=== PATIENT | female | born 1965 | race Caucasian/White ===

== ENCOUNTER → 2018-09-08 | Outpatient (CLI) | payer BC | END | disposition home or self-care (01) | LOC: LABPAT 09:55 | PROVIDERS: ATTEND Orthopaedic Surgery | DX: Z01.812 Encounter for preprocedural laboratory examination (principal) | CPT/HCPCS: 87070 ==

== ENCOUNTER 2018-10-23 06:04 | Inpatient (IN) | payer BC ==
[2018-10-13 16:09] VITALS: BMI 27.3
--- NOTE | 2018-10-22 12:12 | HP ---
HISTORY AND PHYSICAL REASON FOR ADMISSION: Surgery scheduled for 10/23/2018 Alie Galicia is a 53-year-old patient seen with symptomatic left knee osteoarthritis. After having treatment options discussed with her, she elected to proceed with left total knee arthroplasty. Consent was obtained. PAST MEDICAL HISTORY: Asthma. PAST SURGICAL HISTORY: Left knee arthroscopy. MEDICATIONS: Zyrtec. ALLERGIES: ADVIL. SOCIAL HISTORY: She denies current tobacco use. PHYSICAL EXAMINATION: Evaluation of the left knee: Range of motion is -3 to 120 degrees. She is tender along the lateral joint line. There is a positive lateral Armand's. Her ligaments are stable. Hip rotation is without pain. Her distal neurovascular exam is intact. RADIOGRAPHS: Radiographs of the left knee reveal severe lateral and moderate patellofemoral compartment osteoarthritis. IMPRESSION: 1. Left knee osteoarthritis. 2. Asthma. PLAN: Left total knee arthroplasty. MMODL / IJN: [id number] /
[~2018-10-23 06:04] MED LIST: ACETAMINOPHEN TAB 500 MG TAB PO ONE; DEXAMETHASONE SOD PHOSPHATE 10 MG/ML 1 ML VIAL IV ONE; LIDOCAINE 1% 20 ML VIAL (10MG/ML) FOR IV START INTRADERMA PRN; MELOXICAM 7.5 MG TAB PO ONE; MIDAZOLAM 2 MG/2 ML VIAL IV PRN; TRANEXAMIC ACID 1,000 MG in SODIUM CHLORIDE 0.9% 100 ML IVPB ONE; fentaNYL (PF) 50 MCG/ML 2 ML AMP IV PRN
[2018-10-23] MEDS: LACTATED RINGERS 1,000 ML IV SCH ×7 (06:55→23:09)
[2018-10-23] MEDS ORDERED: MIDAZOLAM (PF) 2 MG/2 ML VIAL IVP ONE (06:56)
[2018-10-23] MEDS ORDERED: DEXAMETHASONE SOD PHOSPHATE 10 MG/ML 1 ML VIAL IV ONE (07:07)
[2018-10-23] MEDS ORDERED: ONDANSETRON 4 MG/2 ML VIAL IVP ONE (07:07)
[2018-10-23] MEDS ORDERED: SCOPOLAMINE 1.5MG/72HR PATCH TRANSDERM ONE (07:18)
[2018-10-23] MEDS ORDERED: GLYCOPYRROLATE 0.2 MG/ML 2 ML VIAL ONE (07:24)
[2018-10-23] MEDS ORDERED: SODIUM CHLORIDE 0.9% 100 ML BAG ONE (07:24)
[2018-10-23] MEDS ORDERED: ROCURONIUM BROMIDE 10 MG/ML 10 ML VIAL IV ONE (07:24)
[2018-10-23] MEDS ORDERED: NEOSTIGMINE 1 MG/ML 10 ML VIAL ONE (07:24)
[2018-10-23] MEDS ORDERED: LIDOCAINE 1% INJ 10MG/ML (20 ML MDV) ONE (07:24)
[2018-10-23] MEDS ORDERED: TRANEXAMIC ACID 1,000 MG/10 ML VIAL ONE (07:24)
[2018-10-23] MEDS ORDERED: fentaNYL (PF) 50 MCG/ML 2 ML AMP ONE (07:24)
[2018-10-23] MEDS ORDERED: PROPOFOL 10 MG/ML 20 ML VIAL IV ONE (07:24)
[2018-10-23] MEDS ORDERED: SUCCINYLCHOLINE CHLORIDE 100 MG/5 ML SYR IV ONE (07:24)
[2018-10-23] MEDS ORDERED: ROPIVACAINE 246.25 MG, EPINEPHrine 0.5 MG, KETOROLAC 30 MG, cloNIDine HCL/PF 80 MCG, WA... MISCELLANE ONE ×5 (07:37)
[2018-10-23] MEDS ORDERED: ceFAZolin 3,000 MG in SODIUM CHLORIDE 0.9% IRRIGATIO 3,000 ML IRRIGATION ONE (08:01)
[2018-10-23] MEDS ORDERED: ROPIVACAINE 0.2%-NS ON-Q PUMP 1,090 MG, EMPTY PAIN BALL 1 EACH MISCELLANE PRN (09:27)
[2018-10-23] MEDS ORDERED: HYDROmorphone 0.5 MG/0.5 ML SYRINGE IVP PRN ×2 (09:28)
[2018-10-23] MEDS ORDERED: NALOXONE 0.4 MG/ML 1 ML VIAL IV PRN (09:28)
[2018-10-23] MEDS ORDERED: HYDROcodone/APAP 5-325MG 1 EACH TAB PO PRN (09:28)
--- NOTE | 2018-10-23 09:28 | P.OP ---
Date of Procedure: 10/23/18 Preoperative Diagnosis: Left knee osteoarthritis Postoperative Diagnosis: Left knee osteoarthritis Procedure(s) Performed: Left total knee arthroplasty Implants: 1. Depuy attune size 6 narrow left cemented cruciate-retaining femur 2. Depuy attune size 6 cemented tibial baseplate 3. Depuy attune size 6 fixed bearing cruciate retaining 5 mm polyethylene tibial insert 4. Depuy attune 38 mm all polyethylene cemented patella Anesthesia: GETA, regional (Adductor canal catheter), local Surgeon: Candido Rosales Swimming Pool Installer #1: Diego Colbert Estimated Blood Loss (ml): 40 Pathology: other (Bone) Condition: stable Disposition: PACU Indications for Procedure: 53-year-old patient seen with symptomatic left knee osteoarthritis. After treatment options were discussed, she elected to proceed with total knee arthroplasty. Operative Findings: See description of procedure Description of Procedure: Patient was taken to the operative suite after having an adductor canal catheter placed by the department of anesthesia for postoperative pain management. Patient underwent a general anesthetic by the department of anesthesia. Patient was given preoperative IV intake antibiotics and TXA. A well-padded tourniquet was placed about the left lower extremity. The lower extremity was then prepped and draped in the normal sterile orthopedic fashion. The extremity was eleva shauna, a tourniquet was insufflated to 300. A standard anterior incision was made sharply through skin. Dissection was taken down through the subcutaneous soft tissues down to the extensor mechanism. A medial arthrotomy was performed, patella was everted and knee was flexed. There was advanced osteoarthritis noted. I introduced my distal intramedullary femoral drill. I then introduced the distal femoral cutting jig. Marlon GONZALEZ secured the cutting jig with 2 pins. I held retractors in position while Marlon GONZALEZ performed the distal femoral resection through the guide area we now removed her distal femoral cutting guide. We now placed our 4-in-1 femoral cutting block and positioned and it was secured with 2 pins by Marlon GONZALEZ while I held the block in position. The distal femoral finishing was now completed. A proximal tibial cutting guide was positioned. I held the guide in the appropriate position with both hands well Marlon GONZALEZ inserted stabilizing pins into the guide. Proximal tibial cut was made. We now placed a trial femoral component into position, along with an appropriate size tibial tray and insert. We now took the knee through range of motion and had full extension good flexion and good overall soft tissue balance noted. The patella was everted and stabilized with 2 towel clips held by Marlon GONZALEZ while I performed a flush with patellar q uad tendon utilizing a fresh sawblade. We templated the patella, appropriate drill holes were made. An appropriate trial patella was positioned, knee was taken through full range of motion with the patella tracking very nicely. The trial patella was removed. Drill holes were made through the femoral component. All trial components were removed after marking off the appropriate rotation of the tibia. Retractors were now positioned along the proximal tibia. An appropriate keel punch was made with the appropriate size tibial guide by myself on Marlon GONZALEZ assisted by holding retractors. At this point appropriate size implants were chosen and opened. The joint was irrigated copiously with pulse lavage mechanical irrigation. The posterior capsule was infiltrated with local analgesic. The wound was irrigated with pulse lavage mechanical irrigation. We mixed antibiotic methylmethacrylate. We placed the knee into flexion. We placed multiple retractors assisted by Marlon GONZALEZ to expose the proximal tibia. Once the methyl methacrylate was ready, the tibial component was cemented into place removing any excess methylmethacrylate form by both myself and Marlon GONZALEZ. The femoral component was cemented into place removing the removing any excess methylmethacrylate performed by both myself and Marlon GONZALEZ. We then inserted the appropriate size polyethylene tibial insert. We made sure that it was locked into position. We took the knee into full extension, and then back in a flexion making sure we had removed any excess methylmethacrylate. The patellar component was then cemented down and secured with clamp. Excess methylmethacrylate removed. We kept the knee in full extension, patellar clamp in position until methylmethacrylate had hardened. Once it had hardened the patellar clamp was removed. The knee was taken through full range of motion. The patella tracked nicely. There was good soft tissue balancing. The tourniquet was now released. Additional hemostasis was achieved via electrocautery. A second gram of TXA was given. The wound again was irrigated with pulse lavage mechanical irrigation. The superficial soft tissues were infiltrated local analgesic. The extensor mechanism was repaired with Vicryl. We checked the repair with range of motion and it was stable. The subcutaneous soft tissues were repaired with Vicryl in layers. The skin was approximated with pernio/Dermabond. Sterile dressings were applied followed by loose web roll and Demetri bandage. The patient was transferred to a bed, and taken to recovery in stable and satisfactory condition. Marlon GONZALEZ assisted with this complex procedure.
[2018-10-23] MEDS: HYDROmorphone 1 MG/ML 1 ML SYRINGE IVP ONE ×2 (10:05→10:10)
[2018-10-23] MEDS: ONDANSETRON 4 MG/2 ML VIAL IVP PRN (10:09)
--- NOTE | 2018-10-23 10:12 | XR ---
EXAMINATION TYPE: XR knee limited LT DATE OF EXAM: 10/23/2018 COMPARISON: NONE TECHNIQUE: Two views submitted HISTORY: Post op FINDINGS: There is a prosthetic knee in near anatomic alignment. There is soft tissue edema and emphysema. IMPRESSION: 1. Postoperative change. Appears in near-anatomic alignment
[2018-10-23] MEDS: HYDROcodone/APAP 7.5-325MG 1 EACH TAB PO PRN ×2 (11:19→18:05)
[2018-10-23] MEDS ORDERED: KETOROLAC 30 MG/ML 1 ML VIAL IVP ONE ×2 (12:48)
[2018-10-23] MEDS ORDERED: HYDROcodone/APAP 7.5-325MG 1 EACH TAB PO PRN (13:10)
[2018-10-23] MEDS ORDERED: HYDROmorphone 1 MG/ML 1 ML SYRINGE IVP PRN (13:10)
[2018-10-23] MEDS ORDERED: MAGNESIUM HYDROXIDE 2,400 MG/10 ML CUP PO PRN (13:10)
[2018-10-23] MEDS ORDERED: ACETAMINOPHEN TAB 325 MG TAB PO PRN (13:10)
[2018-10-23] MEDS: traMADol 50 MG TAB PO PRN ×2 (14:20→20:06)
[2018-10-23] MEDS: SENNOSIDES-DOCUSATE SODIUM 1 EACH TAB PO SCH (20:05)
[2018-10-24] MEDS: HYDROcodone/APAP 7.5-325MG 1 EACH TAB PO PRN ×4 (00:02→20:51)
[2018-10-24] MEDS: traMADol 50 MG TAB PO PRN ×2 (03:11→10:08)
[2018-10-24] MEDS: LACTATED RINGERS 1,000 ML IV SCH ×4 (08:03→21:06)
[2018-10-24] MEDS ORDERED: LACTATED RINGERS 300 ML IV ONE (08:14)
[2018-10-24] MEDS ORDERED: MIDAZOLAM (PF) 2 MG/2 ML VIAL IV ONE (08:14)
[2018-10-24] MEDS ORDERED: LACTATED RINGERS 1,000 ML IV ONE (08:30)
--- NOTE | 2018-10-24 08:56 | P.PN ---
Progress Note - Text 724am 730am 53-year-old female status post total knee replacement by Dr. Rosales. Patient has an On-Q pump for postop pain control with the solution running at 8 mL an hour with with not much relief. I decided to redo the adductor canal catheter and she was brought down recovery room. The procedure was done by Dr. Sweet in his dictated note
--- NOTE | 2018-10-24 09:24 | P.ANPRN ---
Procedure Note - Anesthesia - Nerve Block Performed Left Adductor Canal Infusion Time Out Performed: Yes Date of Procedure: 10/24/18 Procedure Start Time: 08:30 Procedure Stop Time: 08:45 Location of Patient Procedure: PACU Indication: Acute Post-Operative Pain, Analgesia, Requested by physician Sedation Type: Awake Preparation: Sterile Prep, Sterile Dressing Position: Supine Catheter: Indwelling Needle Types: Pajunk Needle Gauge: 18 Technique: Ultrasound Injectate: 0.5% Ropivacaine (see comment for volume) (20 ml) Blood Aspirated: No Pain Paresthesia on Injection Noted: No Resistance on Injection: Normal Events: Uneventful and Well Tolerated Left Other (see comment) Single Time Out Performed: Yes (iPACK) Date of Procedure: 10/24/18 Procedure Start Time: 08:50 Procedure Stop Time: 08:55 Location of Patient Procedure: PACU Indication: Acute Post-Operative Pain, Analgesia, Requested by physician Sedation Type: Awake Preparation: Sterile Prep, Sterile Dressing Position: Left Lateral Catheter: None Needle Types: On-Q Needle Gauge: 20 Technique: Ultrasound Injectate: Other (see comment) (Ropivacaine 0.5% 10 ml w/ Lidocaine 2% w/ epi 10 ml) Blood Aspirated: No Pain Paresthesia on Injection Noted: No Resistance on Injection: Normal Events: Uneventful and Well Tolerated
[2018-10-24] MEDS: ENOXAPARIN 40 MG/0.4 ML SYRINGE SQ SCH (10:08)
[2018-10-24] MEDS: ONDANSETRON 4 MG/2 ML VIAL IVP PRN (11:33)
--- NOTE | 2018-10-24 16:13 | P.PN ---
Subjective Progress Note Date: 10/24/18 Principal diagnosis: Status post left total knee arthroplasty Patient evaluated bedside today, she is resting comfortably in the chair. Patient was kept overnight due to increasing pain, early this morning pain has not improved. She was scheduled for a reinsertion of the pain catheter in the left leg. This was done recovery room by anesthesia. Patient's pain is medically improved. She hasn't ambulated with therapy at this point. Denies any chest pain or shortness of breath. Objective - Vital Signs Vital signs: Vital Signs Temp 99.4 F 10/24/18 15:00 Pulse 72 10/24/18 15:00 Resp 14 10/24/18 15:00 BP 106/60 10/24/18 15:00 Pulse Ox 95 10/24/18 15:00 Intake & Output 10/23/18 10/24/18 10/24/18 18:59 06:59 18:59 Intake Total 1001 1080 400 Output Total 340 Balance 661 1080 400 Weight 83.4 kg Intake: IV 1001 400 Oral 1080 Output: Urine 300 Estimated Blood Loss 40 Other: # Voids 2 3 - Exam Left lower extremity: Incision is clean, dry, and intact. The exofin fusion tape is in good condition. There is minimal soft tissue swelling and ecchymosis surrounding the medial and lateral aspects of the incision. Calf is soft, no tenderness with palpation. Plantar flexion, dorsiflexion, EHL, FHL are intact. Sensory exam to light touch throughout the extremity is intact, dorsal pedis pulses 2+. Assessment and Plan Plan: Assessment: Postoperative day #1 status post left total knee arthroplasty Plan: Pain control, continue current medication GI and DVT prophylaxis, continue current medication Daily dressing changes/ice and elevate Encourage incentive spirometer Medical recommendations Due to patient's increase in pain and having a redo the catheter along with not being up with therapy at this time patient will stay 1 additional night with discharge to home tomorrow., Time with Patient: Less than 30
[2018-10-24] MEDS: SENNOSIDES-DOCUSATE SODIUM 1 EACH TAB PO SCH (20:52)
[2018-10-25] MEDS: HYDROcodone/APAP 7.5-325MG 1 EACH TAB PO PRN ×4 (02:58→20:28)
[2018-10-25] MEDS: LACTATED RINGERS 1,000 ML IV SCH ×4 (03:03→18:51)
--- NOTE | 2018-10-25 07:53 | P.ANPRN ---
Procedure Note - Anesthesia - Nerve Block Performed Left Adductor Canal Infusion Date of Procedure: 10/23/18 Procedure Start Time: 06:56 Procedure Stop Time: 07:09 Location of Patient Procedure: PreOp Indication: Acute Post-Operative Pain, Requested by physician Sedation Type: Sedate with meaningful contact maintained Preparation: Sterile Prep, Sterile Dressing Position: Supine Catheter: Indwelling Needle Types: Pajunk Needle Gauge: 21 Technique: Ultrasound Injectate: 0.5% Ropivacaine (see comment for volume) (ropi .5% 20cc) Blood Aspirated: No Pain Paresthesia on Injection Noted: No Resistance on Injection: Normal Events: Uneventful and Well Tolerated
[2018-10-25 08:59] LABS: Basophils % (A) 0 %; Eosinophils # (A) 0.1 k/uL (0-0.7); Eosinophils % (A) 1 %; HCT 28.2 % (34.0-46.0); HGB 9.4 gm/dL (11.4-16.0); Lymphocytes # (A) 1.3 k/uL (1.0-4.8); Lymphocytes % (A) 16 %; MCH 29.6 pg (25.0-35.0); MCHC 33.3 g/dL (31.0-37.0); MCV 88.8 fL (80.0-100.0); Mean Platelet Volume 7.6; Monocytes # (A) 0.8 k/uL (0-1.0); Monocytes % (A) 9 %; Neutrophils % (A) 73 %; Platelet Count 194 k/uL (150-450); RBC 3.18 m/uL (3.80-5.40); WBC 8.3 k/uL (3.8-10.6)
[2018-10-25 09:16] LABS: ALT 13 U/L (9-52); AST 17 U/L (14-36); African American GFR (CKD) >90 (>60 ml/min/1.73 sqM); Albumin 3.4 g/dL (3.5-5.0); Alkaline Phosphatase 50 U/L (38-126); Anion Gap 6 mmol/L; Blood Urea Nitrogen 7 mg/dL (7-17); Calcium 8.7 mg/dL (8.4-10.2); Carbon Dioxide 29 mmol/L (22-30); Chloride 102 mmol/L (98-107); Glucose 157 mg/dL (74-99); Potassium 3.6 mmol/L (3.5-5.1); Sodium 137 mmol/L (137-145); Total Bilirubin 0.7 mg/dL (0.2-1.3)
--- NOTE | 2018-10-25 09:26 | P.PN ---
Progress Note - Text Progress Note Date: 10/25/18 Patient with minimal pain that is much improved compared to yesterday. Denies weakness. Left adductor canal catheter site clean and dry A/P POD#2 s/p L TKA and day #1 s/p left iPACK and repeat L adductor canal catheter - doing well
[2018-10-25] MEDS: ENOXAPARIN 40 MG/0.4 ML SYRINGE SQ SCH (10:02)
--- NOTE | 2018-10-25 10:30 | P.PN ---
Subjective Progress Note Date: 10/25/18 Principal diagnosis: Status post left total knee arthroplasty Patient evaluated bedside today, she is resting comfortably in the chair. Pain is better today. Patient did have a low blood pressure was feeling of nausea when ambulating. cbc and cmp have been ordered, medical consult also placed. Denies any chest pain or shortness of breath. Objective - Vital Signs Vital signs: Vital Signs Temp 99.3 F 10/25/18 08:22 Pulse 72 10/25/18 08:22 Resp 16 10/25/18 07:21 BP 114/66 10/25/18 08:22 Pulse Ox 96 10/25/18 08:22 Intake & Output 10/24/18 10/25/18 10/25/18 18:59 06:59 18:59 Intake Total 400 580 Balance 400 580 Intake: IV 400 Oral 580 Other: # Voids 3 - Exam Left lower extremity: Incision is clean, dry, and intact. The exofin fusion tape is in good condition. There is minimal soft tissue swelling and ecchymosis surrounding the medial and lateral aspects of the incision. Calf is soft, no tenderness with palpation. Plantar flexion, dorsiflexion, EHL, FHL are intact. Sensory exam to light touch throughout the extremity is intact, dorsal pedis pulses 2+. - Labs CBC & Chem 7: 10/25/18 08:29 10/25/18 08:29 Labs: Abnormal Lab Results - Last 24 Hours (Table) 10/25/18 10/25/18 Range/Units 08:29 08:29 RBC 3.18 L (3.80-5.40) m/uL Hgb 9.4 L (11.4-16.0) gm/dL Hct 28.2 L (34.0-46.0) % Glucose 157 H (74-99) mg/dL Total Protein 6.0 L (6.3-8.2) g/dL Albumin 3.4 L (3.5-5.0) g/dL Assessment and Plan Plan: Assessment: Postoperative day #2 status post left total knee arthroplasty Acute blood loss anemia, expected surgical outcome Plan: Pain control, continue current medication GI and DVT prophylaxis, continue current medication Daily dressing changes/ice and elevate Encourage incentive spirometer Medical recommendations We'll reassess later this afternoon, patient is receiving a fluid bolus Likely discharge home tomorrow Time with Patient: Less than 30
--- NOTE | 2018-10-25 16:37 | P.CONS ---
History of Present Illness - Reason for Consult Consult date: 10/25/18 - History of Present Illness The patient is a 53-year-old female with a past medical history of osteoarthritis who was admitted to the hospital for elective left total knee replacement. The patient underwent the procedure yesterday and was seen earlier today on the surgical unit. The patient reported continued pain, 7 out of 10 at the time of interview at the left knee. She otherwise denied any additional complaints. She denied chest pain, shortness of breath, nausea, vomiting, diaphoresis, or palpitations. She further denied abdominal pain, dysuria, fever, chills, or cough. Review of Systems Pertinent positives and negatives as discussed in HPI, a complete review of systems was performed and all other systems are negative. Past Medical History Past Medical History: Asthma, Osteoarthritis (OA) History of Any Multi-Drug Resistant Organisms: None Reported Past Surgical History: Tonsillectomy Past Anesthesia/Blood Transfusion Reactions: No Reported Reaction Past Psychological History: No Psychological Hx Reported Smoking Status: Never smoker Past Alcohol Use History: None Reported Past Drug Use History: None Reported - Past Family History Mother Family Medical History: No Reported History Medications and Allergies Home Medications Medication Instructions Recorded Confirmed Type Cetirizine HCl/Pseudoephedrine 1 tab PO DAILY 10/13/18 10/24/18 History [Zyrtec-D Tablet] Cholecalciferol (Vitamin D3) 5,000 unit PO DAILY 10/13/18 10/24/18 History [Vitamin D3] Evening Sabina Oil 500 mg PO DAILY 10/13/18 10/24/18 History Vitamin E (Dl,Tocopheryl Acet) 400 unit PO DAILY 10/13/18 10/24/18 History [Vitamin E] Albuterol Inhaler [Ventolin Hfa 1 - 2 puff INHALATION RT-Q6H PRN 10/18/18 10/24/18 History Inhaler] Aspirin [Adult Low Dose Aspirin EC] 81 mg PO BID #60 tablet.dr 10/23/18 Rx Docusate [Colace] 100 mg PO DAILY #30 capsule 10/23/18 Rx Famotidine [Pepcid] 20 mg PO DAILY #30 tablet 10/23/18 Rx HYDROcodone/APAP 7.5-325MG [[place] 1 - 2 each PO Q6HR PRN #56 tab 10/23/18 Rx 7.5] traMADol HCl [Ultram] 50 mg PO Q6H PRN #28 tab 10/23/18 Rx Allergies Allergy/AdvReac Type Severity Reaction Status Date / Time latex Allergy Itching Verified 10/23/18 06:16 mold Allergy Swelling Verified 10/23/18 06:16 OF THROAT Physical Exam Vitals: Vital Signs Temp Pulse Pulse Resp BP Pulse Ox 10/25/18 14:05 98.5 F 67 16 123/65 96 10/25/18 12:57 110/64 10/25/18 11:38 98.8 F 68 18 91/49 95 10/25/18 08:22 99.3 F 72 114/66 96 10/25/18 07:21 99.3 F 67 16 88/52 98 10/25/18 07:10 18 10/25/18 07:00 98.6 F 76 16 88/52 96 10/25/18 06:04 98.7 F 10/25/18 06:02 99.3 F 10/25/18 03:03 99.4 F 10/25/18 00:14 99.3 F 10/25/18 00:12 99.3 F 10/25/18 00:10 100.4 F H 10/25/18 00:06 100.3 F H 77 14 100/61 96 10/24/18 19:02 99.1 F 74 15 109/66 98 Intake and Output 10/25/18 10/25/18 10/25/18 06:59 14:59 22:59 Intake Total 100 450 Balance 100 450 Intake: Intake, IV Titration 450 Amount Lactated Ringers 1,000 ml 450 @ 250 mls/hr IV .Q4H [facility] Rx#:[id number] Oral 100 General: non toxic, no distress, appears at stated age, normal weight Derm: no unusual rashes/lesions no unusual ecchymoses, warm, dry Head: atraumatic, normocephalic, symmetric Eyes: EOMI, no lid lag, anicteric sclera, pupils equal round reactive to light ENT: Nose and ears atraumatic, no thrush, no pharyngeal erythema Neck: No thyromegaly, no cervical lymphadenopathy, trachea midline, supple Mouth: no lip lesion, mucus membranes moist Cardiovascular: S1S2 reg, no murmur, positive posterior tibial pulse bilateral, no edema, capillary refill less than 2 seconds Lungs: CTA bilateral, no rhonchi, no rales , no accessory muscle use Abdominal: soft, nontender to palpation, no guarding, no appreciable organomegaly, normal bowel sounds Ext: no gross muscle atrophy, muscle strength 5 out of 5 in all 4 extremities grossly except left lower extremity due to pain, no contractures, left knee post-surgical, dressing in place, clean and dry Neuro: CN II-XI grossly intact, light touch intact all 4 extremities, finger to nose within normal limits, Psych: Alert, oriented, appropriate affect Results CBC & Chem 7: 10/25/18 08:29 10/25/18 08:29 Labs: Abnormal Lab Results - Last 24 Hours (Table) 10/25/18 10/25/18 Range/Units 08:29 08:29 RBC 3.18 L (3.80-5.40) m/uL Hgb 9.4 L (11.4-16.0) gm/dL Hct 28.2 L (34.0-46.0) % Glucose 157 H (74-99) mg/dL Total Protein 6.0 L (6.3-8.2) g/dL Albumin 3.4 L (3.5-5.0) g/dL Assessment and Plan Plan: Status post left total knee replacement -Postoperative day #2 -Pain control as per orthopedic service -Incentive spirometer Hyperglycemia -Check A1c Normocytic anemia -Monitor CBC DVT prophylaxis -As per orthopedic service
[2018-10-25] MEDS: SENNOSIDES-DOCUSATE SODIUM 1 EACH TAB PO SCH (19:07)
[2018-10-25] MEDS: ONDANSETRON 4 MG/2 ML VIAL IVP PRN (19:08)
[2018-10-26] MEDS: HYDROcodone/APAP 7.5-325MG 1 EACH TAB PO PRN ×2 (03:02→08:57)
[2018-10-26] MEDS: LACTATED RINGERS 1,000 ML IV SCH ×2 (03:44→05:13)
[2018-10-26 07:37] LABS: HCT 26.1 % (34.0-46.0); HGB 8.9 gm/dL (11.4-16.0); MCH 30.7 pg (25.0-35.0); MCHC 33.9 g/dL (31.0-37.0); MCV 90.5 fL (80.0-100.0); Mean Platelet Volume 7.4; Platelet Count 190 k/uL (150-450); RBC 2.89 m/uL (3.80-5.40); RDW 12.8 % (11.5-15.5)
[2018-10-26 07:46] VITALS: BP 129/67; PULSE 76; RESP 16; TEMP 99.2
[2018-10-26] MEDS: ENOXAPARIN 40 MG/0.4 ML SYRINGE SQ SCH (08:58)
--- NOTE | 2018-10-26 09:25 | P.DS ---
Providers Date of admission: 10/23/2018 Expected date of discharge: 10/26/18 Attending physician: Candido Rosales Primary care physician: Ebenezer Soto DO Hospital Course: Date of admission: 10/23/2018 Date of discharge: 10/26/2018 Admission diagnosis: Status post left total knee arthroplasty Discharge diagnosis: Same Attending physician: Dr. Rosales Surgical procedures: Left total knee arthroplasty Brief history: Patient is a 53-year-old female with a history of progressive primary left knee osteoarthritis. At this point patient has failed conservative treatment measures and has opted to proceed with a elective left total knee arthroplasty. Hospital course: Details of patient's surgery can be found in operative report. Patient tolerated the procedure well and was subsequently transported to orthopedic floor. Patient's orthopeidc and medical care was provided daily. Patient had daily laboratory tests performed for evaluation of overall blood counts. Patient had daily physical therapy to include strengthening range of motion as well as education with walker ambulation. Patient had daily CPM usage as part of their physical therapy program. Patient was treated with Lovenox for their postoperative DVT prophylaxis during their inpatient stay. Patient was noted to have a relatively uneventful postoperative course. Patient reported satisfactory pain control with oral pain medications by postoperative day 1. Patient showed satisfactory progress with physical therapy. Patient moved steadily through the program and had no difficulty meeting the goals by postoperative day 3. Given patient's otherwise satisfactory course and having met physical therapy goals, plan is to discharge patient home on postoperative day 3. Discharge condition/disposition: Patient will be discharged home in stable condition. Discharge medications: Instructions are given on resumption of patient's normal daily medications per primary care recommendation, in addition patient will be prescribed [place] 7.5 mg/325 mg, tramadol 50 mg, Colace 100 mg, aspirin 81 mg, Pepcid 20 mg, ferrous sulfate 325 mg. Discharge instructions: 1. Wound care and infection precautions, keep incision dry and covered while showering, no lotions, creams, moisturizers. No soaking, tubs, pools, hottubs. Do not scrub over the incision. 2. Weight-bear as tolerated with walker / cane until follow-up. 3. Ice and elevate when necessary. Do not exceed 20 minutes per hour with ice pack. 4. Utilize compression sleeve until seen at first follow up appointment. 5. Visiting nursing care. 6. Home physical therapy including home CPM. 7. Pain meds and anticoagulants per prescription. 8. Pain medication has potential to cause constipation. Increase oral fluid and fiber intake. Contact primary care provider if you have not had a bowel movement within 48 hours after discharge 9. No anti-inflammatory medication until discussed at first post operative visit, this including Motrin, Aleve, Mobic, Diclofenac. 10. Follow up in office at 2 weeks postop with Marlon Colbert PA-C 11. Follow up with your primary care doctor 7-10 days after discharge. 12. Contact [facility] with any questions, . Procedures: Left total knee arthroplasty Patient Condition at Discharge: Good Plan - Discharge Summary Discharge Rx Participant: Yes New Discharge Prescriptions: New Aspirin [Adult Low Dose Aspirin EC] 81 mg PO BID #60 tablet. Docusate [Colace] 100 mg PO DAILY #30 capsule HYDROcodone/APAP 7.5-325MG [[place] 7.5] 1 - 2 each PO Q6HR PRN #56 tab PRN Reason: Pain Famotidine [Pepcid] 20 mg PO DAILY #30 tablet traMADol HCl [Ultram] 50 mg PO Q6H PRN #28 tab PRN Reason: Pain Ferrous Sulfate [Feosol] 325 mg PO BID #30 tab No Action Evening [place] Oil 500 mg PO DAILY Vitamin E (Dl,Tocopheryl Acet) [Vitamin E] 400 unit PO DAILY Cetirizine HCl/Pseudoephedrine [Zyrtec-D Tablet] 1 tab PO DAILY Cholecalciferol (Vitamin D3) [Vitamin D3] 5,000 unit PO DAILY Albuterol Inhaler [Ventolin Hfa Inhaler] 1 - 2 puff INHALATION RT-Q6H PRN PRN Reason: Shortness Of Breath Discharge Medication List Cetirizine HCl/Pseudoephedrine [Zyrtec-D Tablet] 1 tab PO DAILY 10/13/18 [History] Cholecalciferol (Vitamin D3) [Vitamin D3] 5,000 unit PO DAILY 10/13/18 [History] Evening [place] Oil 500 mg PO DAILY 10/13/18 [History] Vitamin E (Dl,Tocopheryl Acet) [Vitamin E] 400 unit PO DAILY 10/13/18 [History] Albuterol Inhaler [Ventolin Hfa Inhaler] 1 - 2 puff INHALATION RT-Q6H PRN 10/18/18 [History] Aspirin [Adult Low Dose Aspirin EC] 81 mg PO BID #60 tablet. 10/23/18 [Rx] Docusate [Colace] 100 mg PO DAILY #30 capsule 10/23/18 [Rx] Famotidine [Pepcid] 20 mg PO DAILY #30 tablet 10/23/18 [Rx] HYDROcodone/APAP 7.5-325MG [[place] 7.5] 1 - 2 each PO Q6HR PRN #56 tab 10/23/18 [Rx] traMADol HCl [Ultram] 50 mg PO Q6H PRN #28 tab 10/23/18 [Rx] Ferrous Sulfate [Feosol] 325 mg PO BID #30 tab 10/26/18 [Rx] Follow up Appointment(s)/Referral(s): [facility],Equipment [NON-STAFF] - As Needed (Continuous Passive Motion knee machine and walker.) Ebenezer Soto DO [Primary Care Provider] - 1 Week [facility], [NON-STAFF] - Diego Colbert PAC [PHYSICIAN MEMBER SERVICE SPECIALIST] - 11/08/18 2:30 pm Activity/Diet/Wound Care/Special Instructions: Orthopedic Discharge Instructions: 1. Wound care and infection precautions, keep incision dry and covered while showering, no lotions, creams, moisturizers. No soaking, pools, hot tubs. Do not scrub over incision. 2. Weight-bear as tolerated with walker / cane until follow-up. 3. Ice and elevate when necessary. Do not exceed 20 minutes per hour with ice pack. 4. Utilize compression sleeve until seen at first follow up appointment. 5. Pain meds and anticoagulants per prescription. 6. Pain medication has potential to cause constipation. Increase oral fluid and fiber intake. Contact primary care provider if you have not had a bowel movement within 48 hours after discharge. 7. No anti-inflammatory medication until discussed at first post operative visit, this including Motrin, Aleve, Mobic, Diclofenac. 8. Follow up in office at 2 weeks postop with Marlon Colbert PA-C 9. Follow up with your primary care doctor 7-10 days after discharge. 10. Contact [facility] with any questions, [phone]. 11. *Please call [facility] once home to arrange delivery of the Continuous Passive Motion (CPM) machine: [phone] 12. [facility] will call tonight or tomorrow morning to arrange first visit. They should come out tomorrow for first visit. Nursing will come for 1 hour once a week and physical therapy will come out 3 times a week for an hour at a time. Discharge Disposition: HOME WITH HOME HEALTH SERVICES
--- NOTE | 2018-10-26 11:47 | P.PN ---
Subjective Progress Note Date: 10/26/18 Patient was seen and examined at bedside on 10/26/2018. She reports continued 6 out of 10 left knee pain but otherwise denied any active complaints. She denied chest pain, shortness of breath, nausea, vomiting, fever chills, or cough. She states that she has been up and ambulating, passing urine and had a bowel movement. Objective - Vital Signs Vital signs: Vital Signs Temp 99.2 F 10/26/18 07:23 Pulse 76 10/26/18 08:00 Resp 16 10/26/18 08:00 BP 129/67 10/26/18 07:23 Pulse Ox 95 10/26/18 07:23 Intake & Output 10/25/18 10/26/18 10/26/18 18:59 06:59 18:59 Intake Total 450 480 200 Output Total 600 200 Balance -150 280 200 Intake: Intake, IV Titration 450 Amount Lactated Ringers 1,000 ml 450 @ 250 mls/hr IV .Q4H [facility] Rx#:[id number] Oral 480 200 Output: Urine 600 200 - Exam General: Non-toxic, in no acute distress, appears stated age, normal weight HEENT: NC/AT, anicteric sclerae, moist conjunctiva, no lid-lag, PERRLA Cardiovascular: S1/S2 wnl, no murmurs, rubs, or gallops Lungs: Clear to auscultation, normal respiratory effort, no accessory muscle use Abdominal: Soft, non-tender, non-distended, no guarding, rebound, or rigidity Skin: Warm, dry Extremities: Left knee postsurgical, with dressings in place, clean and dry, no edema or contractures Psychiatric: Alert and oriented to person, place and time, appropriate affect Neuro: CN II-XII grossly intact, no focal deficits - Labs CBC & Chem 7: 10/26/18 06:52 10/25/18 08:29 Labs: Abnormal Lab Results - Last 24 Hours (Table) 10/26/18 Range/Units 06:52 RBC 2.89 L (3.80-5.40) m/uL Hgb 8.9 L (11.4-16.0) gm/dL Hct 26.1 L (34.0-46.0) % Assessment and Plan Plan: Status post left total knee replacement -Postoperative day #3 -Pain control as per orthopedic service -Incentive spirometer Hyperglycemia -A1C pending Normocytic anemia -Monitor CBC -Will perform anemia workup DVT prophylaxis -As per orthopedic service
--- NOTE | 2018-10-26 11:50 | P.PN ---
Progress Note - Text Anesthesia POD 3. Patient is status post left TKR under spinal anesthesia with a left adductor canal catheter placed for postoperative pain relief. With ropivacaine 0.2% running at 10 cc's per hour, the patient's VAS is (1, 3). Catheter site is clean dry and intact. Patient is eating discharged this afternoon.
[2018-10-26 14:26] LABS: Hemoglobin A1C 5.6 % (4.0-6.0)
[2018-10-26 16:23] LABS: Folate, Serum 12.2 ng/mL; Iron Saturation 5.45 (12.00-45.00)
== END 2018-10-26 12:31 | disposition home health service (06) | DRG 470 ==
LOC: OR 06:04 → 4SSUR 09:45 → OR 10-24 15:30 → 4SSUR 10-24 16:36
PROVIDERS: ADMIT Orthopaedic Surgery; ATTEND Orthopaedic Surgery
PROC: 0SRD0J9 Replacement of Left Knee Joint with Synthetic Substitute, Cemented, Open Approach (ICD-10-PCS; principal; 2018-10-23 07:30)
PROC: 3E0R3BZ Introduction of Anesthetic Agent into Spinal Canal, Percutaneous Approach (ICD-10-PCS; 2018-10-25)
DX: M17.12 Unilateral primary osteoarthritis, left knee (principal); Z96.652 Presence of left artificial knee joint; J45.909 Unspecified asthma, uncomplicated; Z96.659 Presence of unspecified artificial knee joint; R11.0 Nausea; M25.562 Pain in left knee; R73.9 Hyperglycemia, unspecified; D64.9 Anemia, unspecified; Z79.82 Long term (current) use of aspirin; Z88.8 Allergy status to other drugs, medicaments and biological substances; Z90.89 Acquired absence of other organs; Z91.040 Latex allergy status; Z91.048 Other nonmedicinal substance allergy status
CPT/HCPCS: 64405; 80053; 81025; 82607; 82728; 82746; 83036; 83540; 83550; 85025; 85027; 88300

== ENCOUNTER 2019-02-05 08:39 | Day surgery (SDC) | payer BC ==
[2019-02-02 08:22] VITALS: BMI 24.3
--- NOTE | 2019-02-04 21:09 | HP ---
HISTORY AND PHYSICAL REASON FOR ADMISSION: Surgery 02/05/2019 Alie Galicia is a 53-year-old patient seen with left knee adhesions after previously having a total knee arthroplasty. We discussed manipulation under anesthesia, left knee with steroid injection. The patient elected to proceed. Consent was obtained. PAST MEDICAL HISTORY: Asthma. PAST SURGICAL HISTORY: Left knee arthroscopy, left total knee arthroplasty. MEDICATIONS: Nasacort, Zyrtec. ALLERGIES: ADVIL. SOCIAL HISTORY: She denies tobacco use. PHYSICAL EXAMINATION: Evaluation of the left knee shows well-healed incision. Range of motion is -3 to 80. She has some weakness with quadriceps strength. Ligaments are stable. Distal neurovascular exam is intact. RADIOGRAPHS: Left knee radiographs revealed a stable appearing total knee arthroplasty. IMPRESSION: Left knee adhesions, status post total knee arthroplasty. PLAN: Manipulation under anesthesia, left knee with steroid injection. Surgery scheduled for 02/05/2019. MMODL / IJN: [id number] /
[~2019-02-05 08:39] MED LIST changes: -ACETAMINOPHEN TAB 500 MG TAB PO ONE; -DEXAMETHASONE SOD PHOSPHATE 10 MG/ML 1 ML VIAL IV ONE; +KETOROLAC 30 MG/ML 1 ML VIAL IVP SCH; +LACTATED RINGERS 1,000 ML IV SCH; -MELOXICAM 7.5 MG TAB PO ONE; -MIDAZOLAM 2 MG/2 ML VIAL IV PRN; +MORPHINE SULFATE 2 MG/ML SYRINGE IV PRN; +ONDANSETRON 4 MG/2 ML VIAL IVP PRN; -TRANEXAMIC ACID 1,000 MG in SODIUM CHLORIDE 0.9% 100 ML IVPB ONE; -fentaNYL (PF) 50 MCG/ML 2 ML AMP IV PRN
[2019-02-05] MEDS ORDERED: DEXAMETHASONE SOD PHOSPHATE 10 MG/ML 1 ML VIAL IV ONE (09:15)
[2019-02-05 09:19] VITALS: RESP 16; TEMP 97.6
[2019-02-05] MEDS ORDERED: KETOROLAC 30 MG/ML 1 ML VIAL ONE (09:21)
[2019-02-05] MEDS ORDERED: PROPOFOL 10 MG/ML 20 ML VIAL IV ONE (09:21)
[2019-02-05] MEDS ORDERED: fentaNYL (PF) 50 MCG/ML 2 ML AMP ONE (09:21)
[2019-02-05] MEDS ORDERED: methylPREDNISolone ACETATE 80 MG/ML 1 ML VIAL INTRAARTIC ONE (09:28)
[2019-02-05] MEDS ORDERED: BUPIVACAIN-EPI 0.25%-1:200,000 30 ML VIAL INTRAARTIC ONE (09:28)
--- NOTE | 2019-02-05 09:34 | P.OP ---
Date of Procedure: 02/05/19 Preoperative Diagnosis: Left knee adhesions with history of total knee arthroplasty Postoperative Diagnosis: Same Procedure(s) Performed: Manipulation under anesthesia left knee with steroid injection Anesthesia: MAC, local Surgeon: Candido Rosales Estimated Blood Loss (ml): 0 Pathology: none sent Condition: stable Disposition: PACU Indications for Procedure: 53-year-old patient seen with left knee adhesions after previously under having gone total knee arthroplasty. I discussed manipulation under anesthesia left knee with steroid injection, she was agreeable and consent was obtained. Operative Findings: See description of procedure Description of Procedure: The patient was taken to a monitored anesthesia area. Patient received IV antibiotics. The patient underwent IV sedation by the department anesthesia. When sufficient anesthesia was noted a manipulation of the left knee was performed. We remove achieve full extension and 130 of flexion with audible tearing of the adhesions. The superior lateral aspect of the left knee was prepped and draped in the normal sterile orthopedic fashion. A solution 1 mL Depo-Medrol and 4 mL quarter percent Marcaine were injected into the suprapatellar compartment under sterile technique. A sterile Band-Aid was applied. The patient tolerated procedure well.
[2019-02-05 12:25] VITALS: BP 112/60; PULSE 52
== END 2019-02-05 12:32 | disposition home or self-care (01) ==
LOC: OR 08:39
PROVIDERS: ATTEND Orthopaedic Surgery
DX: M23.8X2 Other internal derangements of left knee (principal); J45.909 Unspecified asthma, uncomplicated; Z96.652 Presence of left artificial knee joint; Z79.51 Long term (current) use of inhaled steroids; Z79.899 Other long term (current) drug therapy; Z88.6 Allergy status to analgesic agent
CPT/HCPCS: 27570; 81025; J1040; J1100; J2405; J3010; J1885; J2270; J2704